=== PATIENT | male | born 1990 | race Two or more races ===

== ENCOUNTER 2023-08-30 16:56 | Emergency (ER) | payer MEDICAID, OTHER ==
[~2023-08-30] VITALS: Ht 172.7 cm; Wt 73.0 kg
[2023-08-30 19:40] VITALS: BP 137/78; TEMP 98.2; O2SAT 100
== END 2023-08-30 21:12 | disposition home or self-care (01) ==
LOC: ER 17:06
DX: S20.211A Contusion of right front wall of thorax, initial encounter (principal); V00.311A Fall from snowboard, initial encounter; Y93.23 Activity, snow (alpine) (downhill) skiing, snowboarding, sledding, tobogganing and snow tubing; Y92.89 Other specified places as the place of occurrence of the external cause; Y99.8 Other external cause status
CPT/HCPCS: 71100-TC